=== PATIENT | female | born 1930 ===

== ENCOUNTER 2017-04-20 09:15 | Inpatient (IN) | payer MEDICARE ==
[2017-04-20 09:32] VITALS: BMI 22.2
[2017-04-20] MEDS ORDERED: Etomidate 20 mg/10ml Inj IV ONE (09:44)
[2017-04-20] MEDS ORDERED: Succinylcholine 200 mg/10 ml Inj IV ONE (09:45)
[2017-04-20] MEDS ORDERED: Ropivacaine 0.5% 30ML IV ONE (09:57)
[2017-04-20 10:01] LABS: HEMATOCRIT 26.7 % (34.0-47.0); MEAN CELL VOLUME 88.6 fl (81.0-99.0); MEAN CORPUSCULAR HEMOGLOBIN 30.5 pg (27.0-31.0); MEAN CORPUSCULAR HGB CONC 34.4 g/dL (33.0-37.0); RED CELL DISTRIBUTION WIDTH 12.4 % (11.5-14.5); WHITE BLOOD COUNT 14.5 K/uL (4.8-10.8)
[2017-04-20] MEDS ORDERED: Bupivacaine 0.5% Inj(30mL) ONE (10:03)
[2017-04-20] MEDS ORDERED: ceFAZolin IV 1 gm in Dextrose 1 GM/50 ML BAG IVPB ONE (10:03)
[2017-04-20] MEDS ORDERED: Absorbable Gelatin Sponge Size 100 ONE (10:05)
[2017-04-20] MEDS ORDERED: Thrombin Topical 5,000 IU Spray Kit ONE (10:05)
[2017-04-20] MEDS ORDERED: EPINEPHrine 1 mg/ml (1:1000) Inj ONE (10:05)
[2017-04-20 10:23] LABS: BLOOD UREA NITROGEN 24 mg/dl (7-17); CALCIUM 9.8 mg/dL (8.4-10.2); CARBON DIOXIDE 26 mmol/L (22-30); CHLORIDE 97 mmol/L (98-107); GFR AFRICAN-AMERICAN > 60; GLUCOSE,RANDOM 268 mg/dL (65-105); SODIUM 133 mmol/l (132-148)
--- NOTE | 2017-04-20 10:44 | CP.PCM.HP ---
History of Present Illness - History of Present Illness History of Present Illness: 86 y/o female with PMH HTN, DM, dyslipidemia presented via SDS for right shoulder ORIF.Patient states that last Tuesday she fell from the chair on her right side and immediately felt severe pain to right arm and shoulder. She was seen at [facility] and diagnosed with right arm fracture. Her arm was placed on a sling and narcotics were prescribed for pain relied and was told to follow up with her orthopedist. She saw Dr. Valdez in his office who scheduled her for ORIF of right shoulder. Patient saw here PMD for preop clearance and has medical clearance in the chart. She complains of right arm pain that is controlled with pain medication. She alos complains of constipation and lower abdominal cramps , has not had a bowel movement in 3 days. she denies any ative chest pain or SOB, upper respiratory symptoms , fever, chills or dysuria.Denies orthopnea or PND. Gives history of feeling weak and SOB with ambulation. Allergies ; Iodine, olivia PMH ; HTN, dyslipidemia, DM , history of colon and breast cancer Medications;Metoprolol , percoset , Enalapril, Isosorbide , statin Surgery ; hysterectomy, colon resection for colon cancer, tonsillectomy, appendectomy,lumpectomy ( 2 years ago right ),intestinal surgery for intestinal obstruction, cataract surgery, left tortal knee replacement Family history ; Sister had cancer,. Brother had leukemia, Mother and father had heart conditions but 93 and 84 years old Social history ; Lives with in [place], does not work ,denies any smoking , ETOH or drug abuse ROS ; All other system review is negative except above Code status: full code PMD ; DR Bairon HA Present on Admission - Present on Admission Any Indicators Present on Admission: No Review of Systems - Review of Systems All systems: reviewed and no additional remarkable complaints except Past Patient History - Infectious Disease Hx of Infectious Diseases: None - Tetanus Immunizations Tetanus Immunization: Unknown - Past Medical History & Family History Past Medical History?: Yes - Past Social History Smoking Status: Never Smoked Chewing Tobacco Use: No Cigar Use: No Alcohol: None Drugs: Denies Home Situation {Lives}: With Family Domestic Violence: Negative - CARDIAC Hx Cardiac Disorders: Yes Hx Hypercholesterolemia: Yes Hx Hypertension: Yes - PULMONARY Hx Respiratory Disorders: No - NEUROLOGICAL Hx Neurological Disorder: No - HEENT Hx HEENT Problems: No - RENAL Hx Chronic Kidney Disease: No - ENDOCRINE/METABOLIC Hx Endocrine Disorders: No Hx Diabetes Mellitus Type 2: Yes - HEMATOLOGICAL/ONCOLOGICAL Hx Blood Disorders: Yes Hx Anemia: Yes Hx Blood Transfusions: No Hx Cancer: Yes (colon breast) - INTEGUMENTARY Hx Dermatological Problems: No - MUSCULOSKELETAL/RHEUMATOLOGICAL Hx Musculoskeletal Disorders: Yes Hx Arthritis: Yes Hx Falls: Yes - GASTROINTESTINAL Hx Gastrointestinal Disorders: No Hx Bowel Surgery: Yes - GENITOURINARY/GYNECOLOGICAL Hx Genitourinary Disorders: No - PSYCHIATRIC Hx Emotional Abuse: No Hx Physical Abuse: No - SURGICAL HISTORY Hx Surgeries: Yes Hx Appendectomy: Yes Hx Cataract Extraction: Yes Hx Hysterectomy: Yes Hx Tonsillectomy: Yes Other/Comment: appendectomy. Colon resection surgery. lumpectomy - ANESTHESIA Hx Anesthesia: Yes Hx Anesthesia Reactions: No Hx Malignant Hyperthermia: No Has any member of the family had a problem w/ anesthesia?: No Meds Allergies/Adverse Reactions: Allergies Allergy/AdvReac Type Severity Reaction Status Date / Time FISH Allergy RASH Verified 04/20/17 09:32 iodine Allergy SWELLING Verified 08/16/16 07:54 olivia Allergy SWELLING Verified 08/16/16 07:54 niacinamide Allergy PAIN Verified 04/20/17 09:32 [From Michael Nadertate] vitamin B complex no.12 Allergy PAIN Verified 04/20/17 09:32 [From Rabano Naderdado] Physical Exam - Constitutional Appears: Non-toxic, No Acute Distress - Head Exam Head Exam: ATRAUMATIC, NORMAL INSPECTION, NORMOCEPHALIC - Eye Exam Eye Exam: EOMI, Normal appearance, PERRL Pupil Exam: NORMAL ACCOMODATION - ENT Exam ENT Exam: Mucous Membranes Moist, Normal Exam - Neck Exam Neck exam: Positive for: Full Rom, Normal Inspection - Respiratory Exam Respiratory Exam: Clear to Auscultation Bilateral, NORMAL BREATHING PATTERN. absent: Rales, Rhonchi, Wheezes - Cardiovascular Exam Cardiovascular Exam: REGULAR RHYTHM, RRR, +S1, +S2. absent: JVD - GI/Abdominal Exam GI & Abdominal Exam: Normal Bowel Sounds, Soft. absent: Distended, Guarding, Rebound, Tenderness - Rectal Exam Rectal Exam: Deferred - Extremities Exam Extremities exam: Positive for: normal capillary refill, normal inspection, pedal pulses present. Negative for: calf tenderness, pedal edema Additional comments: right arm on sling , warm to touch capillary refill intact with large echymotic area under the arm - Back Exam Back exam: NORMAL INSPECTION - Neurological Exam Neurological exam: Alert, CN II-XII Intact, Oriented x3, Reflexes Normal - Psychiatric Exam Psychiatric exam: Normal Affect, Normal Mood - Skin Skin Exam: Dry, Pallor, Warm Results - Vital Signs Recent Vital Signs: Last Vital Signs Temp 98.1 F 04/20/17 10:16 Pulse 70 04/20/17 10:17 Resp 20 04/20/17 10:16 BP 128/48 L 04/20/17 10:16 Pulse Ox 98 04/20/17 10:16 - Labs Result Diagrams: 04/20/17 09:45 04/20/17 09:45 Labs: Laboratory Results - last 24 hr 04/20/17 04/20/17 09:45 09:45 WBC 14.5 H RBC 3.01 L Hgb 9.2 L Hct 26.7 L MCV 88.6 D MCH 30.5 MCHC 34.4 RDW 12.4 Plt Count 429 H D Sodium 133 Potassium 4.0 Chloride 97 L Carbon Dioxide 26 Anion Gap 14 BUN 24 H Creatinine 0.9 Est GFR ( Amer) > 60 Est GFR (Non-Af Amer) 60 Random Glucose 268 H Calcium 9.8 Assessment & Plan - Assessment and Plan (Free Text) Assessment: 86 y/o female with PMH HTN, DM, dyslipidemia presented via SDS for right shoulder ORIF.Patient states that last Tuesday she fell from the chair on her right side and immediately felt severe pain to right arm and shoulder. She was seen at [facility] and diagnosed with right arm fracture. Her arm was placed on a sling and narcotics were prescribed for pain relied and was told to follow up with her orthopedist. She saw Dr. Valdez in his office who scheduled her for ORIF of right shoulder. Patient saw here PMD for preop clearance and has medical clearance in the chart. She complains of right arm pain that is controlled with pain medication. She also complains of constipation and lower abdominal cramps , has not had a bowel movement in 3 days. she denies any active chest pain or SOB, upper respiratory symptoms , fever, chills or dysuria.Denies orthopnea or PND. Gives history of feeling weak and SOB with ambulation. 1. Right shoulder fracture after fall for ORIF today by Dr. Valdez patient has medical clearance in the chart by PMD Hgb 8.4. Will type and cross match and transfuse 2 unit PRBC keep NPO 2. Anemia unclear etiology will trype cross and match and transfuse 2 unit PRBC today 3. Constipation will give fleet enema preop 4.HTN controlled will resume home meds post op 5. Dyslipidemia on statin 6. DM type II Hgb A1c 5.8 on Metformin Po as per PMD 7.DVT prophylaxis SCD
[2017-04-20] MEDS ORDERED: Midazolam 2 MG/2 ML VIAL ONE (11:11)
[2017-04-20] MEDS ORDERED: Lactated Ringer's 1,000 ML IV ONE (11:15)
[2017-04-20] MEDS ORDERED: Phenylephrine 10 mg/ml Inj ONE (11:39)
[2017-04-20] MEDS ORDERED: Propofol 10 mg/ml Inj (20 ML) ONE (11:42)
[2017-04-20] MEDS ORDERED: Rocuronium 10 mg/ml (5 ml) ONE (11:43)
[2017-04-20] MEDS ORDERED: Sodium Chloride 0.9% 500 ML IV ONE (11:53)
[2017-04-20] MEDS ORDERED: Sodium Chloride 0.9% 1,000 ML IV ONE (12:51)
[2017-04-20] MEDS ORDERED: Neostigmine Methylsulfate 3mg/3ml Syringe IV ONE (13:55)
[2017-04-20] MEDS ORDERED: Neostigmine Methylsulfate 2 MG/2 ML ML IV ONE (13:55)
[2017-04-20] MEDS ORDERED: Desflurane Inhalation Anesthetic Liq (240 ml) ONE (14:07)
[2017-04-20] MEDS ORDERED: Pneumococcal 23-Valent Vaccine IM ONE (16:06)
[2017-04-20] MEDS ORDERED: ALENDRONATE 70 MG TAB PO SCH (16:15)
[2017-04-20] MEDS: Sodium Chloride 0.9% 1,000 ML IV SCH (17:46)
[2017-04-20] MEDS: Insulin Lispro (humaLOG) 100 Units/ml Inj SC SCH (22:49)
[2017-04-21 00:31] VITALS: RESP 20
[2017-04-21] MEDS: Sodium Chloride 0.9% 1,000 ML IV SCH ×2 (03:09→07:09)
[2017-04-21] MEDS: ceFAZolin IV 2 gm in Dextrose 2 GM/50 ML BAG IVPB SCH ×2 (03:11→09:41)
[2017-04-21 08:02] VITALS: BP 164/64; PULSE 87; TEMP 98.7; O2SAT 98
[2017-04-21] MEDS: Insulin Lispro (humaLOG) 100 Units/ml Inj SC SCH ×3 (08:27→11:26)
--- NOTE | 2017-04-21 08:27 | PCM.SURG1 ---
Surgeon's Initial Post Op Note - Surgeon's Notes Surgeon: Courtney Assembly Stock Supervisor: RHYS Rodriguez/2nd assist Refugio Type of Anesthesia: General Endo, Block Regional Anesthesia Administered By: DR Mosquera Pre-Operative Diagnosis: Displaced/ comminuted 4 part R proximal humerus fracture Operative Findings: as above. rupture rotator cuff R shoulder Post-Operative Diagnosis: as above Operation Performed: R total shoulder replacement arthroplasty. repair R rotator cuff. arthrotomy/ debridement glenoid labrum Specimen/Specimens Removed: bone/fx callous/ Estimated Blood Loss: EBL {In ML}: 50 Blood Products Given: N/A, PRBC Drains Used: No Drains Post-Op Condition: Good Date of Surgery/Procedure: 04/20/17 Time of Surgery/Procedure: 12:15 (timem in roomk 11:10)
[2017-04-21] MEDS ORDERED: Metoprolol Succinate 50 mg XL Tab PO SCH (09:00)
[2017-04-21] MEDS ORDERED: Levothyroxine 100 MCG TAB PO SCH (09:00)
[2017-04-21] MEDS ORDERED: Patient's Own Med (Isosorbide Dinitrate [Isosorbide Dinitrate] 30 MG) PO SCH (09:00)
--- NOTE | 2017-04-21 09:58 | CP.PCM.DIS ---
<Carlo Martinez - Last Filed: 04/21/17 10:23> Provider - Provider Date of Admission: 04/20/17 16:07 Attending physician: Corrine Churchill MD Primary care physician: Max Waddell MD Time Spent in preparation of Discharge (in minutes): 30 Diagnosis - Discharge Diagnosis (1) Shoulder joint replacement status Status: Acute Hospital Course - Lab Results Lab Results: Most Recent Lab Values WBC 14.5 K/uL (4.8-10.8) H 04/20/17 09:45 RBC 3.01 Mil/uL (3.80-5.20) L 04/20/17 09:45 Hgb 9.2 g/dL (12.0-16.0) L 04/20/17 09:45 Hct 26.7 % (34.0-47.0) L 04/20/17 09:45 MCV 88.6 fl (81.0-99.0) D 04/20/17 09:45 MCH 30.5 pg (27.0-31.0) 04/20/17 09:45 MCHC 34.4 g/dL (33.0-37.0) 04/20/17 09:45 RDW 12.4 % (11.5-14.5) 04/20/17 09:45 Plt Count 429 K/uL (130-400) H D 04/20/17 09:45 Sodium 133 mmol/l (132-148) 04/20/17 09:45 Potassium 4.0 MMOL/L (3.6-5.0) 04/20/17 09:45 Chloride 97 mmol/L (98-107) L 04/20/17 09:45 Carbon Dioxide 26 mmol/L (22-30) 04/20/17 09:45 Anion Gap 14 (10-20) 04/20/17 09:45 BUN 24 mg/dl (7-17) H 04/20/17 09:45 Creatinine 0.9 mg/dl (0.7-1.2) 04/20/17 09:45 Est GFR ( Amer) > 60 04/20/17 09:45 Est GFR (Non-Af Amer) 60 04/20/17 09:45 POC Glucose (mg/dL) 274 mg/dL (65-110) H 04/21/17 05:16 Random Glucose 268 mg/dL (65-105) H 04/20/17 09:45 Calcium 9.8 mg/dL (8.4-10.2) 04/20/17 09:45 Blood Type A POSITIVE 04/20/17 09:45 Antibody Screen Negative 04/20/17 09:45 Crossmatch See Detail 04/20/17 09:45 BBK History Checked Patient has bt 04/20/17 09:45 - Hospital Course Hospital Course: 86 y/o female with PMH HTN, DM and dyslipidemia admitted for right shoulder ORIF. Patient is s/p POD 1, no complications before, during and post procedure, stable and asymptomatic at discharge time. Patient discharged home safely with clearance and instructions follow up/visits with PCP and Dr Valdez. Home medications: Alendronate 70 mg PO weekly Atorvastatin 10 mg PO daily Enalapril 10 mg PO daily Isosorbide Dinitrate 30 mg PO daily Levothyroxine 100 mcg PO daily Meclizine 25 PO prn for dizziness Metformin 500 mg PO daily Metoprolol succinate 50 mg PO daily Keflex 500 mg PO q12h x 1 day Discharge Exam - Head Exam Head Exam: NORMAL INSPECTION - Eye Exam Eye Exam: EOMI, PERRL - ENT Exam ENT Exam: Mucous Membranes Moist - Respiratory Exam Respiratory Exam: Clear to PA & Lateral, NORMAL BREATHING PATTERN - Cardiovascular Exam Cardiovascular Exam: REGULAR RHYTHM, +S1, +S2 - GI/Abdominal Exam GI & Abdominal Exam: Normal Bowel Sounds, Soft. absent: Distended, Tenderness - Extremities Exam Additional comments: R upper extremity on sling, s/p POD 1 R shoulder ORIF, dressing looks clean and dry. - Neurological Exam Neurological exam: Alert, Oriented x3 - Psychiatric Exam Psychiatric exam: Normal Affect - Skin Skin Exam: Dry, Warm Discharge Plan - Discharge Medications Prescriptions: Alendronate [Fosamax] 70 mg PO .QWEEK #4 tab Atorvastatin [Lipitor] 10 mg PO DAILY #30 tab Cephalexin [cephalexin] 500 mg PO Q12 #2 cap Enalapril Maleate [Vasotec] 10 mg PO DAILY #30 tab Isosorbide Dinitrate 30 mg PO DAILY #30 tablet Levothyroxine Sodium [Levo-T] 100 mcg PO DAILY #30 tablet Meclizine [Meclizine*] 25 mg PO .4X PRN #30 tab PRN Reason: Dizziness oxyCODONE/Acetaminophen [Percocet 5/325 mg Tab] 1 ea PO Q6 #12 tab - Follow Up Plan Condition: GOOD Disposition: HOME/ ROUTINE Patient education suggested?: Yes Instructions: Rotator Cuff Injury (DC), Joint Replacement Surgery (DC) Additional Instructions: F/U with Dr Valdez next Tuesday04/26/2017 Keflex 500 mg PO q12h ER precautions given Referrals: Max Waddell MD [Primary Care Provider] - <Brittaney Cortes - Last Filed: 04/22/17 09:28> Provider - Provider Date of Admission: 04/20/17 16:07 Attending physician: Corrine Churchill MD Primary care physician: Max Waddell MD Hospital Course - Lab Results Lab Results: Most Recent Lab Values WBC 14.5 K/uL (4.8-10.8) H 04/20/17 09:45 RBC 3.01 Mil/uL (3.80-5.20) L 04/20/17 09:45 Hgb 9.2 g/dL (12.0-16.0) L 04/20/17 09:45 Hct 26.7 % (34.0-47.0) L 04/20/17 09:45 MCV 88.6 fl (81.0-99.0) D 04/20/17 09:45 MCH 30.5 pg (27.0-31.0) 04/20/17 09:45 MCHC 34.4 g/dL (33.0-37.0) 04/20/17 09:45 RDW 12.4 % (11.5-14.5) 04/20/17 09:45 Plt Count 429 K/uL (130-400) H D 04/20/17 09:45 Sodium 133 mmol/l (132-148) 04/20/17 09:45 Potassium 4.0 MMOL/L (3.6-5.0) 04/20/17 09:45 Chloride 97 mmol/L (98-107) L 04/20/17 09:45 Carbon Dioxide 26 mmol/L (22-30) 04/20/17 09:45 Anion Gap 14 (10-20) 04/20/17 09:45 BUN 24 mg/dl (7-17) H 04/20/17 09:45 Creatinine 0.9 mg/dl (0.7-1.2) 04/20/17 09:45 Est GFR ( Amer) > 60 04/20/17 09:45 Est GFR (Non-Af Amer) 60 04/20/17 09:45 POC Glucose (mg/dL) 272 mg/dL (65-110) H 04/21/17 11:08 Random Glucose 268 mg/dL (65-105) H 04/20/17 09:45 Calcium 9.8 mg/dL (8.4-10.2) 04/20/17 09:45 Blood Type A POSITIVE 04/20/17 09:45 Antibody Screen Negative 04/20/17 09:45 Crossmatch See Detail 04/20/17 09:45 BBK History Checked Patient has bt 04/20/17 09:45 Attending/Attestation - Attestation I have personally seen and examined this patient.: Yes I have fully participated in the care of the patient.: Yes I have reviewed all pertinent clinical information, including history, physical exam and plan: Yes Notes (Text): 04/22/17 09:27 SEEN EXAMINED DISCUSSED WITH RESIDENT, AGREE WITH FINDINGS AND PLAN ABOVE.
--- NOTE | 2017-04-21 10:39 | RAD ---
PROCEDURE: Radiographs of the Right Shoulder HISTORY: s/p right total shoulder replacement COMPARISON: No prior. FINDINGS: BONES: Pain status post total right shoulder replacement with hardware in position at the right scapula and proximal right humerus. Postop soft tissue changes are identified at bilateral right shoulder and proximal right arm soft tissues with skin jody noted as well. The acromioclavicular joint appears intact. No definitive dislocation of prosthetic right shoulder hardware. JOINTS: As above. SOFT TISSUES: Normal. OTHER FINDINGS: None. IMPRESSION: Status post total right shoulder replacement as per above.
[2017-04-21] MEDS ORDERED: Oxycodone/Acetaminophen 5/325 mg Tab PO ONE (13:04)
[2017-04-22] MEDS ORDERED: Levothyroxine 100 MCG TAB PO SCH (06:30)
--- NOTE | 2017-04-22 19:56 | OP ---
DATE OF PROCEDURE: 04/20/2017 PREOPERATIVE DIAGNOSIS: Displaced comminuted 4-part right proximal humerus fracture. POSTOPERATIVE DIAGNOSES: Displaced comminuted 4-part right proximal humerus fracture including tear of the rotator cuff, tear of the glenoid labrum, synovitis. PROCEDURES PERFORMED: 1. Right total shoulder replacement arthroplasty. 2. Repair of right rotator cuff. 3. Biceps tenodesis. 4. Arthrotomy, debridement, glenoid labrum. SURGEON: Jaret Valdez MD. NEEDLE SETTER: Yara Ramires, certified registered nursing sampler first. SECOND TMD TEACHER: Refugio Treadwell, General Surgery resident. ANESTHESIA: General endotracheal anesthesia with regional block. ANESTHESIA ADMINISTERED BY: Dr. Mosquera. SPECIMENS REMOVED: Bone fracture callus, tendon. ESTIMATED BLOOD LOSS: 50 mL. DRAINS: None. REPLACEMENT: No blood products given. POSTOPERATIVE CONDITION: Good. INDICATIONS FOR PROCEDURE: Selina Chau is an 86-year-old woman who sustained a fall on the outstretched right upper extremity. The patient presents with pain and restricted range of motion of the right shoulder. The patient is a referral from [facility]. The patient presents with her family. Because of the 4-part fracture dislocation of the shoulder and the extreme osteopenia of the shoulder, this patient in my opinion is an indication for shoulder replacement, arthroplasty, reverse type. Pros, cons, risks, and benefits of reverse shoulder arthroplasty were discussed with the patient and her family. The possibility of mechanical failure, infection, thromboembolic disease, secondary or tertiary surgery were discussed. The patient can no longer withstand the discomfort and wishes the surgery to be accomplished. Informed consent was obtained in the office and again in the operating room with the [employer] system. DESCRIPTION OF PROCEDURE: After having obtained informed consent in the above fashion; after thoroughly discussing the possibility of mechanical failure, infection, thromboembolic disease, stiffness, nerve injury, secondary or tertiary surgery, even was discussed, the patient was identified as Selina Chau, was placed in the modified guajardo chair position using the upper extremity positioner. The right upper extremity was prepped and free draped in usual fashion for upper extremity surgery. The topographic anatomy of the shoulder was marked. The initial incision was described from the distal clavicle, medial to the coracoid process, and the anterior skin fold to the point of the deltoid. The skin incision was infiltrated with a solution of 1:1000 epinephrine in 200 mL of saline. The skin incision was infiltrated with approximately 10 to 15 mL. The skin incision was carried down through the skin and subcutaneous tissue. Stay sutures were placed and with the arm in external rotation, the deltopectoral interval was identified and the cephalic vein was identified. The Maravilla retractors were placed. The underlying clavipectoral fascia was identified and was divided. The modified Charnley retractor was placed and with the arm in external rotation, again, the strap muscles were identified. The modified pediatric Suma retractor was placed. There was found to be a tear of the rotator cuff with external rotation of the shoulder. The fracture was identified. The fracture was found to be 4-part with extreme comminution. There was found be a rend in the rotator cuff. The rotator cuff was skeletonized from the fracture fragments. It was tagged and reflected. This having been accomplished, the shoulder dislocation was brought into the wound with retraction. Great care was taken to protect the axillary nerve. Osteotomy was accomplished with the oscillating saw. Attention was turned to the glenoid. Arthrotomy of the glenoid was accomplished. The biceps was tenotomized. The glenohumeral joint was entered. Arthrotomy of the humeral joint was accomplished. The labral tear was debrided and the labrum was exposed. The guide pin was placed. The reaming was accomplished. The appropriate-sized small glenoid was reamed and impacted. Screws were placed superiorly and inferiorly to hold the metallic glenoid plate 22 mm superiorly, 26 mm posteriorly, and the glenosphere was attached and secured with a bolt. The glenosphere having been found to be stable, attention was turned to the humerus. The humerus was broached to the appropriate size, 15 mm. The fixation was found to be excellent. Trialing was accomplished with the basic plate in addition to an additional buildup with the appropriate-sized polyethylene. The proximal body having been fixed with the screw, the modular polyethylene having been inserted, the shoulder was reduced and found to be stable in all planes; abduction, external rotation, internal rotation, and adduction, and this having been accomplished, the shoulder was again exposed, the broach was removed, and the #15 humeral component was placed. The proximal modular body with buildup plate was affixed with the affixation screw. The appropriate-sized 6-mm polyethylene was employed. The shoulder was reduced and found to be stable in all planes. The wound was thoroughly irrigated. Hemostasis was controlled with the Aquamantys. The rotator cuff was repaired through the fractured stem with a wire passer and interrupted FiberWire sutures. This having been accomplished, the biceps was retrieved and tenodesed to the rotator cuff mass with interrupted Arthrex FiberWire sutures. The wound was thoroughly irrigated. The deltopectoral interval was closed. There was minimal bleeding. The deltopectoral interval was closed with 0 Quill, followed by 0 Quill, 2-0 Vicryl, and jody for skin. There was 50 mL of blood loss. Max Thacker compression dressing and shoulder immobilizer were applied. Postoperative x-rays revealed excellent position of the construct. Jaret Valdez MD
== END 2017-04-21 15:25 | disposition home or self-care (01) | DRG 483 ==
LOC: H.OPSURG 09:15 → H.MEDSURG1 16:07
PROVIDERS: ADMIT Hospitalist; ATTEND Hospitalist
PROC: 0LQ10ZZ Repair Right Shoulder Tendon, Open Approach (ICD-10-PCS; 2017-04-20)
PROC: 0RRJ0JZ Replacement of Right Shoulder Joint with Synthetic Substitute, Open Approach (ICD-10-PCS; principal; 2017-04-20 07:45)
PROC: 0LS30ZZ Reposition Right Upper Arm Tendon, Open Approach (ICD-10-PCS; 2017-04-20 07:45)
DX: S42.241A 4-part fracture of surgical neck of right humerus, initial encounter for closed fracture (principal); E11.9 Type 2 diabetes mellitus without complications; D64.9 Anemia, unspecified; I10 Essential (primary) hypertension; E78.5 Hyperlipidemia, unspecified; W07.XXXA Fall from chair, initial encounter; S46.011A Strain of muscle(s) and tendon(s) of the rotator cuff of right shoulder, initial encounter; Y93.9 Activity, unspecified; Y92.9 Unspecified place or not applicable; Z91.041 Radiographic dye allergy status; Z91.013 Allergy to seafood; Z91.018 Allergy to other foods; Z85.3 Personal history of malignant neoplasm of breast; Z85.038 Personal history of other malignant neoplasm of large intestine; Z96.652 Presence of left artificial knee joint; K59.00 Constipation, unspecified